=== PATIENT | female | born 1955 | race Caucasian/White ===

== ENCOUNTER 2021-06-27 15:04 | Emergency (ER) | payer OTHER ==
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
--- NOTE | 2021-06-27 15:54 | XRAY ---
Exam: CT of the head without IV contrast from 06/27/2021. CTDI: 53.92 mGy Comparison: [None.] Indication: 65-year-old female with right eye drooping, blurry vision, difficulty finding words. Findings: Noncontrast axial images are obtained through the brain. Reconstructed coronal and sagittal images were created and reviewed. [The ventricles are within normal limits of size.] No focal mass effect or midline shift is seen. No acute intracranial bleed or abnormal extra-axial fluid collection is seen. A low attenuation infarct within a major cerebral or cerebellar artery distribution is not seen. The cortical sulci and basilar cisterns appear unremarkable. The remainder of the paranasal sinuses is clear. The mastoid air cells appear clear. The calvarium of the skull appears intact. Impression: 1. No acute intracranial bleed, focal mass effect, or midline shift is seen. No other acute intracranial process is seen on this non-IV contrast study.
[2021-06-27 16:11] LABS: ALBUMIN 4.1 g/dL (3.5-5.0); ANION GAP 14.7 MEQ/L (5-15); BILIRUBIN,TOTAL 0.5 mg/dL (0.2-1.3); Calcium 9.3 mg/dL (8.4-10.2); Creatinine 1 1.15 mg/dL (0.52-1.04); EST GLOMERULAR FILTRATION RATE 50.5 ML/MIN; Potassium 3.7 mmol/L (3.5-5.1); Total Protein 7.1 g/dL (6.3-8.2)
[2021-06-27 16:12] LABS: Basophil (Absolute #) 0.07 (0-0.4); Eosinophil % 1.8 % (0.00-5.0); Eosinophil (Absolute #) 0.13 (0-0.5); Hematocrit 43.8 % (35-47); Hemoglobin 13.8 gm/dl (12.0-16.0); Lymphocyte (Absolute #) 1.53 (1.0-4.6); Lymphocytes % 20.6 % (24.0-44.0); Mean Cell Volume 91.3 fl (78-100); Mean Corpuscular Hemoglobin 28.8 pg (26-32); Mean Corpuscular Hgb Concent. 31.5 g/dl (32-36); Mean Platelet Volume 10.6 fl (7.5-11.0); Monocyte (Absolute #) 0.58 (0.0-1.3); Monocytes % 7.8 % (0.0-12.0); Neutrophil % 68.9 % (36.0-66.0); Platelet Count 250 K/mm3 (150-450); Red Cell Distribution Width 14.1 % (11.5-14.0); White Blood Count 7.4 K/mm3 (4.0-10.5)
[2021-06-27] MEDS ORDERED: HYDROCODONE-ACETAMIN 2.5-108/5 ML SOLUTION ONE (16:33)
[2021-06-27] MEDS: HYDROCODONE-ACETAMIN 2.5-108/5 ML SOLUTION PO STA (16:34)
--- NOTE | 2021-06-27 17:04 | XRAY ---
Exam: Bilateral duplex Doppler carotid ultrasound from 06/27/2021. Comparison: [None.] Indication: 65-year-old female with drooping of right eye; vertigo. Findings: On the right side, smooth plaque is seen throughout much of the common carotid artery and internal carotid artery without significant stenosis being seen. Mild calcific plaque is seen within the proximal external carotid artery. On the left side, irregular hyperechoic plaque is seen along both the anterior and posterior aspects of the distal common carotid artery, carotid bulb, proximal internal carotid artery, and proximal external carotid artery. A significant stenosis is not identified. Color flow and Doppler tracings were obtained bilaterally. Peak systolic flow velocities in cm/sec are as given below. PEAK SYSTOLIC FLOW VELOCITIES Proximal CCA RIGHT 109 cm/sec LEFT 108 cm/sec Distal CCA RIGHT 45 cm/sec LEFT 73 cm/sec Proximal ICA RIGHT 62 cm/sec LEFT 70 cm/sec Distal ICA RIGHT 65 cm/sec LEFT 63 cm/sec ECA RIGHT 53 cm/sec LEFT 95 cm/sec ICA/CCA Ratio RIGHT 1.4 LEFT 1.0 Vertebral RIGHT 45 cm/sec LEFT 85 cm/sec Direction Flow Both vertebral arteries reveal antegrade flow.. Impression: 1. No hemodynamically significant stenosis of 50% or greater diameter reduction is seen within either visualized common carotid artery or internal carotid artery. 2. Some atherosclerotic plaque is seen within both common carotid arteries and proximal internal carotid arteries, as discussed above.
[2021-06-27 17:22] VITALS: BP 145/69; PULSE 84
--- NOTE | 2021-06-27 17:26 | XRAY ---
Exam: AP upright portable chest film from 06/27/2021. Comparison: Two-view chest series from 02/21/2021. Indication: Cough for 6 weeks. Findings: The heart size is normal. The sh[place] and mediastinal structures appear unremarkable. The lungs are adequately inflated and reveal no infiltrates, vascular congestion, pneumothorax, or pleural fluid. Faint surgical suture material is again seen overlying the right lung apex. There is a single surgical clip overlying the lower right axilla representing no change. Several small surgical clips again overlie the left lower lung field. Evidently, the patient has a history of bilateral breast cancer with bilateral breast reconstruction and implants. I again see a mild compression deformity of T9 which appears grossly similar to the frontal chest film from 02/21/2021. Impression: 1. No definite infiltrates to suggest focal pneumonia or other acute cardiopulmonary disease is seen. 2. Other stable incidental findings, as discussed above.
[2021-06-27 17:31] LABS: Epithelial Cells RARE /HPF (FEW); RBC 0-2 /HPF (0-2)
[2021-06-27 17:34] LABS: INFLUENZA A NEGATIVE (NEGATIVE); INFLUENZA B NEGATIVE (NEGATIVE); RESPIRATORY SYNCTIAL VIRUS NEGATIVE (Negative)
[2021-06-27 17:36] LABS: SARS-CoV-2 Xpert Express POSITIVE (NEGATIVE)
[2021-06-27 17:42] VITALS: O2SAT 100
[2021-06-27 17:44] LABS: Appearance CLEAR (CLEAR); Bilirubin NEGATIVE (NEGATIVE); Dipstick done @ ? MAIN LAB; Glucose NEGATIVE (NEGATIVE); Ketones NEGATIVE (NEGATIVE); Nitrite NEGATIVE (NEGATIVE); Ph 5.5 (5-6); Protein,Urine Dip NEGATIVE (Negative); RBC SMALL Ery/ul (0-5); Specific Gravity 1.015 (1.005-1.025); Urobilinogen 0.2 mg/dL (0-1)
[2021-06-27 17:45] LABS: Urine Cultured Indicated? NO
== END 2021-06-27 18:18 | disposition home or self-care (01) ==
LOC: ED 15:04
DX: R51.9 Headache, unspecified (principal); H02.401 Unspecified ptosis of right eyelid; U07.1 COVID-19; R05.9 Cough, unspecified; I10 Essential (primary) hypertension; Z79.899 Other long term (current) drug therapy
CPT/HCPCS: 0241U; 36000; 36415; 70450; 71045; 80053; 81015; 82947; 84484; 85025; 93005; 93880; 94760; 99284; A9270-GY

== ENCOUNTER 2021-08-01 09:47 | Day surgery (SDC) | payer OTHER ==
[~2021-08-01 09:47] MED LIST: Lactated Ringers 1,000 ML IV SCH
[2021-08-01] MEDS ORDERED: Lactated Ringers 1,000 ML IV ONE (09:52)
[2021-08-01] MEDS ORDERED: Versed 2 MG/2 ML Injection ONE (11:13)
[2021-08-01] MEDS ORDERED: DIPRIVAN 200 MG/20 ML IV ONE (11:23)
[2021-08-01 12:42] VITALS: BP 157/80; PULSE 84; O2SAT 100
--- NOTE | 2021-08-03 08:48 | OP ---
PROCEDURE DATE/TIME: 08/01/2021 1113 PREOPERATIVE DIAGNOSES: Cough with possible gastroesophageal reflux disease. POSTOPERATIVE DIAGNOSIS: Gastroesophageal reflux disease with esophagitis, chronic cough, gastric polyp, gastritis, peptic ulcer disease and small hiatal hernia. PROCEDURES: 1) EGD with biopsy. 2) Cold snare gastric polyp x3. PROCEDURE PERFORMED BY: Shannon Degroot M.D. ESTIMATED BLOOD LOSS: Minimal. ANESTHESIA: MAC. SPECIMENS: Antral biopsies, distal esophagus biopsies, mid esophagus biopsies and gastric polyp. COMPLICATIONS: None. HISTORY: This is a patient who presented with a long standing cough and possible reflux disease as a culprit. I have been asked to perform an EGD to evaluate this due to her chronic symptoms and clinical course. Risks, benefits, alternatives, H&P and consent have all been reviewed and confirmed with the patient. Any remaining questions have been answered. These have all been documented in the chart. She would like to proceed with EGD today. DESCRIPTION OF PROCEDURE: The patient was positioned in the left lateral decubitus position. A complete time out performed. The scope introduced into the mouth, oropharynx down into the esophagus, stomach and the beginning of the duodenum. Advanced to the level of approximately D2. The duodenum is normal. The scope is withdrawn back into the stomach. The patient does have peptic ulcer disease. She has multiple moderate ulcers in the antral region as well as additional superficial ulcerations in the lower gastric body and gastritis throughout the stomach. The ulcerations are cratered slightly linear in shape not just round. There is a small amount of clot on ulceration. We irrigated and there was no visible vessel and no active bleeding. I did take biopsies in the gastric antrum and sent these to pathology. Of note, she also has many gastric polyps that appear benign. We cold snared the three largest and most irregular appearing polyps for sampling but I do think all of the remaining polyps are very smooth and benign appearing and looked like they are related to proton pump inhibitor use. The patient does have a small hiatal hernia which is very subtle which was identified on retroflexion. We insured hemostasis at all polypectomy sites and antral biopsies. There are no concerning masses. The scope was then withdrawn into the distal esophagus. She does appear to have gastroesophageal reflux disease which is present during the scope with free flow of small amounts of liquid into the mid esophagus region and suctioned immediately. She does have esophagitis of her distal esophagus as well as what appeared to be old food contents that are adherent to the esophagus, this does not appear to be Mireya esophagitis because the adherent spots on the esophagus do wash off and they are not white but I did biopsy her distal esophagus to rule out Hart's disease as well to test her pathology for any other further sources of esophagitis. We took biopsies in the mid esophagus as well where she did continue to have some adherent what appeared to be food product as well in the esophagus and washed off the surfaces as best we were able to. There were no masses or lesions of concern in the esophagus. There was no narrowing. The scope was then fully removed after insuring hemostasis. The patient tolerated the procedure very well. There were no immediate complications. I have discussed her results with her family in the postoperative area. She will follow up with me as an outpatient to discuss her pathology report and did give her additional medication as well as lifestyle and diet recommendations to decrease the reflux symptoms as well as to improve her gastritis and peptic ulcer disease and then we will tentatively plan to repeat an EGD in approximately three months to insure resolution of her significant ulcer disease as she had at least two moderate sized ulcers that were about 1.5 to 2 cm in length and less than 1 cm in width as well as other smaller sites of erosion and gastritis.
== END 2021-08-01 12:42 | disposition home or self-care (01) ==
LOC: SDC 09:47
PROVIDERS: ATTEND Surgery
DX: K21.00 Gastro-esophageal reflux disease with esophagitis, without bleeding (principal); K29.70 Gastritis, unspecified, without bleeding; R05.9 Cough, unspecified; R05.3 Chronic cough; K31.7 Polyp of stomach and duodenum; K30 Functional dyspepsia; K44.9 Diaphragmatic hernia without obstruction or gangrene
CPT/HCPCS: J2250; J2704

== ENCOUNTER 2021-08-10 14:42 | Day surgery (SDC) | payer OTHER ==
[2021-08-10] MEDS ORDERED: Depo-Medrol 40 MG/ML IM ONE (14:43)
[2021-08-10] MEDS ORDERED: LIDOCAINE HCL 2% 100 MG/5 ML IJ ONE (14:43)
[2021-08-10] MEDS ORDERED: Lactated Ringers 1,000 ML IV ONE (15:53)
[2021-08-10] MEDS ORDERED: DIPRIVAN 200 MG/20 ML IV ONE (16:23)
--- NOTE | 2021-08-10 18:13 | XRAY ---
Indication: Right T8-T11 MBB. Intraoperative fluoroscopy provided for 16 seconds. Single digital spot image submitted for interpretation demonstrates posterior needle tips projecting over the expected right T8-T11 nerve roots. Correlate with intraoperative findings/report.
--- NOTE | 2021-08-11 12:52 | XRAY ---
16 seconds of fluoroscopy was used in surgery for a right T8-T11 MBB.
== END 2021-08-10 17:05 | disposition home or self-care (01) ==
LOC: SDC-PAIN 14:42
PROVIDERS: ATTEND Psychiatry & Neurology Pain Medicine
DX: M47.814 Spondylosis without myelopathy or radiculopathy, thoracic region (principal); Z79.899 Other long term (current) drug therapy
CPT/HCPCS: 64490; 64491; 64492; 72020; 77002; J1030; J2704

== ENCOUNTER 2021-08-31 13:35 | Day surgery (SDC) | payer OTHER ==
[2021-08-31] MEDS ORDERED: Depo-Medrol 40 MG/ML IM ONE (13:36)
[2021-08-31] MEDS ORDERED: LIDOCAINE HCL 2% 100 MG/5 ML IJ ONE (13:36)
[2021-08-31] MEDS ORDERED: DIPRIVAN 200 MG/20 ML IV ONE (15:41)
[2021-08-31] MEDS ORDERED: Lactated Ringers 1,000 ML IV ONE (16:29)
--- NOTE | 2021-08-31 16:41 | XRAY ---
Indication: Left T8-T11 MBB. Intraoperative fluoroscopy provided for 15 seconds. Single digital spot image submitted for interpretation demonstrates posterior needle tips projecting over the expected left T8-T11 nerve roots. Correlate with intraoperative findings/report.
--- NOTE | 2021-08-31 17:13 | XRAY ---
15 seconds of fluoroscopy was used in surgery for a left T8-T11 MBB.
== END 2021-08-31 16:03 | disposition home or self-care (01) ==
LOC: SDC-PAIN 13:35
PROVIDERS: ATTEND Psychiatry & Neurology Pain Medicine
DX: M47.814 Spondylosis without myelopathy or radiculopathy, thoracic region (principal); Z79.899 Other long term (current) drug therapy
CPT/HCPCS: 01939; 64633; 64634; 72020; 77002; J1030; J2704

== ENCOUNTER 2021-09-28 11:57 | Day surgery (SDC) | payer OTHER, MEDICARE ==
[2021-09-28] MEDS ORDERED: Marcaine Mpf 0.5% Vial 30 Ml IJ ONE (11:58)
[2021-09-28] MEDS ORDERED: Depo-Medrol 40 MG/ML IM ONE (11:58)
[2021-09-28] MEDS ORDERED: Lactated Ringers 1,000 ML IV ONE (12:51)
[2021-09-28] MEDS ORDERED: DIPRIVAN 200 MG/20 ML IV ONE (13:26)
--- NOTE | 2021-09-28 14:07 | XRAY ---
Indication: Right T8-T11 MBB. Intraoperative fluoroscopy provided for 11 seconds. Single digital spot image submitted for interpretation demonstrates posterior needle tips projecting over the expected right T8-T11 nerve roots. Correlate with intraoperative findings/report.
--- NOTE | 2021-09-28 14:20 | XRAY ---
11 seconds of fluoroscopy was used in surgery for a right T8-T11 MBB.
== END 2021-09-28 14:00 | disposition home or self-care (01) ==
LOC: SDC-PAIN 11:57
PROVIDERS: ATTEND Psychiatry & Neurology Pain Medicine
DX: M47.814 Spondylosis without myelopathy or radiculopathy, thoracic region (principal); Z79.899 Other long term (current) drug therapy
CPT/HCPCS: 64490; 64491; 64492; 72072; 77002; J1030; J2704

== ENCOUNTER 2021-10-19 11:29 | Day surgery (SDC) | payer OTHER, MEDICARE ==
[2021-10-19] MEDS ORDERED: Depo-Medrol 40 MG/ML IM ONE (11:30)
[2021-10-19] MEDS ORDERED: BUPIVACAINE 0.5% VIAL IJ ONE (11:30)
[2021-10-19] MEDS ORDERED: Lactated Ringers 1,000 ML IV ONE (12:48)
[2021-10-19] MEDS ORDERED: DIPRIVAN 200 MG/20 ML IV ONE (13:03)
--- NOTE | 2021-10-19 13:32 | XRAY ---
Indication: Left T8-T11 MBB. Intraoperative fluoroscopy provided for 13 seconds. Single digital spot image submitted for interpretation demonstrate posterior needle tips projecting over the expected left T8-T11 nerve roots. Correlate with intraoperative findings/report.
--- NOTE | 2021-10-19 13:36 | XRAY ---
13 seconds fluoroscopy time in surgery for left T8-T11 MBB.
== END 2021-10-19 13:28 | disposition home or self-care (01) ==
LOC: SDC-PAIN 11:29
PROVIDERS: ATTEND Psychiatry & Neurology Pain Medicine
DX: M47.814 Spondylosis without myelopathy or radiculopathy, thoracic region (principal); Z79.899 Other long term (current) drug therapy
CPT/HCPCS: 64490; 64491; 64492; 72020; 77002; J1030; J2704

== ENCOUNTER 2021-11-23 13:11 | Day surgery (SDC) | payer MEDICARE, OTHER ==
[2021-11-23] MEDS ORDERED: XYLOCAINE-MPF 1% 5ML SDV IJ ONE (13:12)
[2021-11-23] MEDS ORDERED: Marcaine Mpf 0.5% Vial 30 Ml IJ ONE (13:12)
[2021-11-23] MEDS ORDERED: Depo-Medrol 40 MG/ML IM ONE (13:12)
[2021-11-23] MEDS ORDERED: DIPRIVAN 200 MG/20 ML IV ONE (15:22)
--- NOTE | 2021-11-23 16:52 | XRAY ---
Indication: Right T8-T11 RFA. Intraoperative fluoroscopy provided for 20 seconds. 2 digital spot image submitted for interpretation images demonstrates posterior needle tips projecting over the expected right T8-T11 nerve roots. Correlate with intraoperative findings/report.
--- NOTE | 2021-11-23 16:56 | XRAY ---
20 seconds of fluoroscopy was used in surgery for a right T8-T11 RFA.
[2021-11-23] MEDS ORDERED: Lactated Ringers 1,000 ML IV ONE (17:39)
== END 2021-11-23 15:50 | disposition home or self-care (01) ==
LOC: SDC-PAIN 13:11
PROVIDERS: ATTEND Psychiatry & Neurology Pain Medicine
DX: M47.816 Spondylosis without myelopathy or radiculopathy, lumbar region (principal); Z79.899 Other long term (current) drug therapy
CPT/HCPCS: 01939; 64633; 64634; 72072; 77002; J1030; J2704

== ENCOUNTER 2021-11-28 12:54 | Day surgery (SDC) | payer MEDICARE, OTHER ==
[2021-11-28] MEDS ORDERED: Lactated Ringers 1,000 ML IV SCH (13:30)
[2021-11-28] MEDS ORDERED: Lactated Ringers 1,000 ML IV ONE (13:37)
[2021-11-28] MEDS ORDERED: Xylocaine-Mpf 2% 5 Ml Vial ONE (15:52)
[2021-11-28] MEDS ORDERED: DIPRIVAN 200 MG/20 ML IV ONE (15:52)
[2021-11-28] MEDS ORDERED: Versed 2 MG/2 ML Injection ONE (15:53)
[2021-11-28 17:01] VITALS: BP 155/93; PULSE 84; O2SAT 97
--- NOTE | 2021-11-29 10:54 | OP ---
SURGERY DATE: 11/28/2021 SURGERY TIME: 1555 PREOPERATIVE DIAGNOSIS: 1. PEPTIC ULCER DISEASE. 2. GASTRITIS. 3. GASTRIC POLYPS. 4. ESOPHAGITIS. 5. EPIGASTRIC ABDOMINAL PAIN. 6. REFLUX. POSTOPERATIVE DIAGNOSIS: 1. MILD GASTRITIS. 2. RESOLVED PEPTIC ULCER DISEASE. 3. BENIGN-APPEARING GASTRIC POLYPS. 4. ESOPHAGITIS SUSPICIOUS FOR JACKELIN ESOPHAGITIS. 5. SMALL STABLE HIATAL HERNIA. PROCEDURE: 1. EGD with biopsies. SURGEON: Dr. Shannon Degroot. ANESTHESIA: MAC. ESTIMATED BLOOD LOSS: Minimal. COMPLICATIONS: None. SPECIMENS: 1. Antral biopsy. 2. Mid and distal esophagus biopsies. PROCEDURE DETAILS: This is a 66 year-old female who presents for EGD. She has had multiple findings previously including peptic ulcer disease, gastritis, gastric polyps, esophagitis and she also is having some epigastric pain and burning. Risks, benefits, and alternatives regarding EGD have been discussed with her in detail. She understands, agrees, she wants to proceed. She was taken to the endoscopy suite. Laid in the left lateral decubitus position. Complete time-out performed. First, the scope was inserted into the mouth, oropharynx, down into the esophagus, stomach, and duodenum. The duodenum was normal. We withdrew the scope to the stomach. The patient has resolved peptic ulcer disease. There are no remaining ulcers. She does have some mild gastritis throughout her stomach as well as multiple benign small gastric polyps. There are no concerning findings in her stomach and no masses of concern. She does look better than she did previously and this is a significant improvement. On retroflex view, her hiatal hernia is visible and this is stable. The scope was then carefully withdrawn after ensuring hemostasis from our cold forceps antral biopsy in the distal esophagus. We visualized the gastroesophageal junction. We again visualized the stable small hiatal hernia. The entire esophagus appears to have a jackelin like esophagitis. I took multiple biopsies in the esophagus including the mid and distal esophagus. These sites were hemostatic and then the scope was completely withdrawn. The patient tolerated the procedure well. There were no immediate complications. PLAN: Prescribe Nystatin swish and swallow. Okay to stop Carafate. Once the jackelin esophagitis has resolved, discussed with family that she may attempt to discontinue her Pepcid and continue on her proton pump inhibitor given her history of severe reflux. All findings and instructions discussed with the family postoperative and the patient also will be following up with me to determine a final plan once our biopsies are back.
== END 2021-11-28 17:07 | disposition home or self-care (01) ==
LOC: SDC 12:54
PROVIDERS: ATTEND Surgery
DX: K29.70 Gastritis, unspecified, without bleeding (principal); K27.9 Peptic ulcer, site unspecified, unspecified as acute or chronic, without hemorrhage or perforation; K31.7 Polyp of stomach and duodenum; K20.90 Esophagitis, unspecified without bleeding; R10.13 Epigastric pain; K21.9 Gastro-esophageal reflux disease without esophagitis; K44.9 Diaphragmatic hernia without obstruction or gangrene
CPT/HCPCS: J2250; J2704

== ENCOUNTER 2021-11-30 12:01 | Day surgery (SDC) | payer MEDICARE, OTHER ==
[2021-11-30] MEDS ORDERED: Depo-Medrol 40 MG/ML IM ONE (12:02)
[2021-11-30] MEDS ORDERED: LIDOCAINE HCL 1% 50 MG/5 ML VL PF IJ ONE (12:02)
[2021-11-30] MEDS ORDERED: BUPIVACAINE 0.5% VIAL IJ ONE (12:02)
[2021-11-30] MEDS ORDERED: DIPRIVAN 200 MG/20 ML IV ONE (13:35)
[2021-11-30] MEDS ORDERED: Lactated Ringers 1,000 ML IV ONE (14:35)
--- NOTE | 2021-11-30 15:17 | XRAY ---
Indication: Left T8-T11 RFA. Intraoperative fluoroscopy provided for 24 seconds. Single digital spot image submitted for interpretation demonstrates posterior needle tips projecting over the expected left T8-T11 nerve roots. Correlate with intraoperative findings/report.
--- NOTE | 2021-11-30 15:26 | XRAY ---
24 seconds of fluoroscopy was used in surgery for a left T8-T11 RFA.
== END 2021-11-30 14:20 | disposition home or self-care (01) ==
LOC: SDC-PAIN 12:01
PROVIDERS: ATTEND Psychiatry & Neurology Pain Medicine
DX: M47.816 Spondylosis without myelopathy or radiculopathy, lumbar region (principal); Z79.899 Other long term (current) drug therapy
CPT/HCPCS: 64633; 64634; 72072; 77002; J1030; J2001; J2704

== ENCOUNTER 2022-06-04 07:38 | Emergency (ER) | payer MEDICARE, OTHER ==
[2022-06-04] MEDS ORDERED: Nitrostat 0.4 MG (ED) SL ONE (07:57)
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
[2022-06-04] MEDS ORDERED: ECOTRIN 81 MG PO ONE (08:13)
[2022-06-04] MEDS ORDERED: BABY ASPIRIN 81 MG CHEW PO ONE (08:15)
[2022-06-04 08:32] LABS: Absolute Neutrophil Ct (ANC) 4.13 x10^3/uL (1.4-6.9); BASOPHIL % 1.1 % (0.0-0.4); Basophil (Absolute #) 0.07 x10^3/uL (0-0.4); Eosinophil % 1.7 % (0.00-5.0); Eosinophil (Absolute #) 0.11 x10^3/uL (0-0.5); Hematocrit 46.4 % (35-47); Hemoglobin 15.2 g/dL (12.0-16.0); IMMATURE GRAN # 0.01 x10^3u/L (0.00-0.03); IMMATURE GRAN % 0.2 % (0.00-0.4); Lymphocyte (Absolute #) 1.71 x10^3/uL (1.0-4.6); Lymphocytes % 26.9 % (24.0-44.0); Mean Cell Volume 85.6 fL (78-100); Mean Corpuscular Hgb Concent. 32.8 g/dL (32-36); Mean Platelet Volume 9.7 fL (7.5-11.0); Monocyte (Absolute #) 0.33 x10^3/uL (0.0-1.3); Monocytes % 5.2 % (0.0-12.0); Neutrophil % 64.9 % (36.0-66.0); Platelet Count 217 x10^3/uL (150-450); Red Blood Count 5.42 x10^6/uL (4.1-5.4); Red Cell Distribution Width 13.3 % (11.5-14.0); White Blood Count 6.4 x10^3/uL (4.0-10.5)
[2022-06-04 08:34] LABS: ALBUMIN 4.3 g/dL (3.5-5.0); ALKALINE PHOSPHATASE 64 U/L (38-126); BLOOD UREA NITROGEN 10 mg/dL (7-17); CHLORIDE 103 mmol/L (98-107); CK-Creatinine Phosphokinase 33 U/L (30-135); Carbon Dioxide 28 mmol/L (22-30); Creatinine 1 0.88 mg/dL (0.52-1.04); EST GLOMERULAR FILTRATION RATE > 60.0 ML/MIN; Glucose 109 mg/dL (74-106); Potassium 4.1 mmol/L (3.5-5.1); SGOT/AST 32 U/L (14-36); SGPT/ALT 18 U/L (0-35); SODIUM 142 mmol/L (137-145); Total Protein 7.4 g/dL (6.3-8.2)
[2022-06-04] MEDS ORDERED: Zofran 4 MG/2 ML VIAL IV ONE (08:48)
[2022-06-04] MEDS ORDERED: MORPHINE SULFATE 4 MG INJ IV ONE (08:48)
[2022-06-04] MEDS ORDERED: Zofran 4 MG/2 ML VIAL ONE (08:51)
[2022-06-04] MEDS ORDERED: MORPHINE SULFATE 4 MG INJ ONE (08:51)
--- NOTE | 2022-06-04 10:21 | XRAY ---
CLINICAL HISTORY:CP. COMPARISON:None; TECHNIQUES:Contiguous 3.[address] images of the chest were acquired with intravenous contrast administration (80 cc of Isovue 370 mgr/100 ml). Coronal and sagittal reconstructions were obtained. CTDI: 27 mGy, DLP: 339.90 mGy*cm; FINDINGS: The scanned pulmonary parenchyma shows no definite consolidative lesions. Atelectatic band formations at bilateral lower lobes, left lingular segment and right superior lung lobe regions are seen. No free or encysted pleural effusion. No evidence of aneurysmal dilation of the thoracic aorta. Breast implants are observed. Heart size is normal, and there is no pericardial effusion. Prominent left axillary lymph nodes, measuring largest measuring 1.75 x 1.0 cm. Clinical correlation and further evaluation are advised. No pathologically enlarged mediastinal, hilar, or right axillary lymph node was identified. There is no definite mass lesion in the chest wall. The scanned upper abdomen is unremarkable. Gallbladder is surgically removed. IMPRESSION: No pulmonary artery thrombus/ emboli are detected. No consolidation, pleural efusion or pneumothorax. No definite abnormality of the thoracic aorta is seen. Prominent left axillary lymph nodes, measuring largest measuring 1.75 x 1.0 cm. Clinical correlation and further evaluation are advised. Electronically Signed by: Britney Lovell MD. (Study Signed: 06/04/2022 09:06:48 [employer] RADIO TECHNICIAN)
[2022-06-04] MEDS ORDERED: NITRO-BID 2% UD PACKETS TOP ONE (10:40)
[2022-06-04] MEDS ORDERED: NITRO-BID 2% UD PACKETS ONE (10:50)
[2022-06-04 12:32] VITALS: BP 140/84; PULSE 104; O2SAT 98
--- NOTE | 2022-06-04 19:33 | XRAY ---
Indication: Chest pain. Comparison: June 27, 2021 Portable chest remains inflated and clear. Heart not enlarged. Bony thorax intact again with osteopenia. New bilateral breast implants. Impression: Continued nonacute chest.
== END 2022-06-04 12:10 | disposition short-term general hospital (02) ==
LOC: ED 07:38
DX: I20.0 Unstable angina (principal); I10 Essential (primary) hypertension; Z79.899 Other long term (current) drug therapy
CPT/HCPCS: 36000; 36415; 71045; 71260; 80053; 82550; 84484; 85025; 85379; 93005; 93041; 96374; 96375; 99285; J2270; J2405; A9270-GY

== ENCOUNTER 2022-07-19 14:39 | Day surgery (SDC) | payer MEDICARE, OTHER ==
[2022-07-19] MEDS ORDERED: Decadron 4 MG INJ IV ONE (14:40)
[2022-07-19] MEDS ORDERED: Sodium Chloride 0.9(Preservative Free) 10 ML IJ ONE (14:40)
[2022-07-19] MEDS ORDERED: LIDOCAINE HCL 1% 50 MG/5 ML VL PF IJ ONE (14:40)
[2022-07-19] MEDS ORDERED: Lactated Ringers 1,000 ML IV ONE (18:10)
--- NOTE | 2022-07-19 22:06 | XRAY ---
Indication: Cervical FELISHA. Intraoperative fluoroscopy provided for 33 seconds. 2 digital spot image submitted for interpretation demonstrates posterior needle tip projecting posterior to cervical thoracic junction. Small amount of contrast injected for needle tip placement. Correlate with intraoperative findings/report.
--- NOTE | 2022-07-20 10:21 | XRAY ---
33 seconds of fluoroscopy was used in surgery for a cervical FELISHA.
== END 2022-07-19 17:48 | disposition home or self-care (01) ==
LOC: SDC-PAIN 14:39
PROVIDERS: ATTEND Psychiatry & Neurology Pain Medicine
DX: M54.12 Radiculopathy, cervical region (principal); Z79.899 Other long term (current) drug therapy
CPT/HCPCS: 62321; 72040; 77003; J1100; J2001; Q9966

== ENCOUNTER 2023-01-24 12:17 | Day surgery (SDC) | payer MEDICARE, OTHER ==
[2023-01-24] MEDS ORDERED: Depo-Medrol 40 MG/ML IM ONE (12:18)
[2023-01-24] MEDS ORDERED: BUPIVACAINE 0.5% VIAL IJ ONE (12:18)
[2023-01-24] MEDS ORDERED: XYLOCAINE-MPF 1% 5ML SDV IJ ONE (12:18)
--- NOTE | 2023-01-24 17:00 | XRAY ---
Indication: Left shoulder and subacromial bursa injection. Intraoperative fluoroscopy provided for 29 seconds. 3 digital spot image submitted for interpretation demonstrates needle tip projecting over left glenohumeral joint superiorly. Second needle tip subacromial. Small amount of contrast injected for both needle tip placement. Correlate with intraoperative findings/report.
--- NOTE | 2023-01-24 17:02 | XRAY ---
29 seconds of fluoroscopy was used in surgery for a left intra-articular shoulder and subacromial bursa injection.
== END 2023-01-24 15:37 | disposition home or self-care (01) ==
LOC: SDC-PAIN 12:17
PROVIDERS: ATTEND Psychiatry & Neurology Pain Medicine
DX: M19.012 Primary osteoarthritis, left shoulder (principal); M75.52 Bursitis of left shoulder; Z79.899 Other long term (current) drug therapy
CPT/HCPCS: 20610; 73030; 77002; J1030; Q9966

== ENCOUNTER 2023-08-29 06:57 | Day surgery (SDC) | payer MEDICARE, OTHER ==
--- NOTE | 2023-08-29 10:14 | XRAY ---
Indication: Left shoulder and subacromial bursa injection. Intraoperative fluoroscopy provided for 18 seconds. 2 digital spot image submitted for interpretation demonstrates needle tip projecting over left glenohumeral joint superiorly. Second needle tip subacromial. Small amount of contrast injected for needle tip placement. Correlate with intraoperative findings/report.
--- NOTE | 2023-08-29 11:41 | XRAY ---
18 seconds of fluoroscopy was used in surgery for a left intra-articular shoulder and subacromial bursa injection.
== END 2023-08-29 08:55 | disposition home or self-care (01) ==
LOC: SDC-PAIN 06:57
PROVIDERS: ATTEND Psychiatry & Neurology Pain Medicine
DX: M19.012 Primary osteoarthritis, left shoulder (principal)
CPT/HCPCS: 20610; 73030; 77002; Q9966

== ENCOUNTER 2024-09-17 09:45 | Day surgery (SDC) | payer MEDICARE, OTHER ==
[2024-09-17] MEDS ORDERED: Marcaine Mpf 0.5% Vial 30 Ml IJ ONE (09:46)
[2024-09-17] MEDS ORDERED: Depo-Medrol 40 MG/ML IM ONE (09:46)
[2024-09-17] MEDS ORDERED: propofoL IV ONE (11:45)
[2024-09-17] MEDS ORDERED: Lactated Ringers 1,000 ML IV ONE (12:24)
--- NOTE | 2024-09-17 13:24 | XRAY ---
Indication: Bilateral T8-T10 MBB. Intraoperative fluoroscopy provided for 12 seconds. 2 digital spot images submitted for interpretation demonstrates posterior needle tips projecting over expected left and right T8-T10 nerve roots. Correlate with intraoperative findings/report.
--- NOTE | 2024-09-17 15:24 | XRAY ---
12 seconds of fluoroscopy was used in surgery for a bilateral T8-T10 MBB.
== END 2024-09-17 12:12 | disposition home or self-care (01) ==
LOC: SDC-PAIN 09:45
PROVIDERS: ATTEND Psychiatry & Neurology Pain Medicine
DX: M47.814 Spondylosis without myelopathy or radiculopathy, thoracic region (principal)

== ENCOUNTER 2024-10-29 15:14 | Day surgery (SDC) | payer MEDICARE, OTHER ==
[2024-10-29] MEDS ORDERED: LIDOCAINE HCL 1% 50 MG/5 ML VL IJ ONE (15:15)
[2024-10-29] MEDS ORDERED: BUPIVACAINE 0.5% VIAL IJ ONE (15:15)
[2024-10-29] MEDS ORDERED: methylPREDNISolone acetate IM ONE (15:15)
[2024-10-29] MEDS ORDERED: propofoL IV ONE (16:15)
[2024-10-29] MEDS ORDERED: MORPHINE SULFATE 2 MG INJ ONE (16:55)
--- NOTE | 2024-10-29 17:02 | XRAY ---
Indication: Right T8-T10 RFA. Intraoperative fluoroscopy provided for 20 seconds. 2 digital spot image submitted for interpretation demonstrates posterior needle tips projecting over expected right T8-T10 nerve roots. Correlate with intraoperative findings/report.
--- NOTE | 2024-10-29 17:09 | XRAY ---
20 seconds of fluoroscopy was used in surgery for a right T8-T10 RFA.
[2024-10-29] MEDS ORDERED: Lactated Ringers 1,000 ML IV ONE (17:21)
== END 2024-10-29 17:18 | disposition home or self-care (01) ==
LOC: SDC-PAIN 15:14
PROVIDERS: ATTEND Psychiatry & Neurology Pain Medicine
DX: M47.814 Spondylosis without myelopathy or radiculopathy, thoracic region (principal)

== ENCOUNTER 2024-11-12 06:54 | Day surgery (SDC) | payer MEDICARE, OTHER ==
[2024-11-12] MEDS ORDERED: BUPIVACAINE 0.5% VIAL IJ ONE (06:55)
[2024-11-12] MEDS ORDERED: methylPREDNISolone acetate IM ONE (06:55)
[2024-11-12] MEDS ORDERED: LIDOCAINE HCL 1% 50 MG/5 ML VL IJ ONE (06:55)
[2024-11-12] MEDS ORDERED: propofoL IV ONE (08:07)
[2024-11-12] MEDS ORDERED: Lactated Ringers 1,000 ML IV ONE (09:03)
--- NOTE | 2024-11-12 11:53 | XRAY ---
Indication: Left T8-T10 RFA. Intraoperative fluoroscopy provided for 15 seconds. 2 digital spot image submitted for interpretation demonstrates posterior needle tips projecting over expected left T8-T10 nerve roots. Correlate with intraoperative findings/report.
--- NOTE | 2024-11-12 12:56 | XRAY ---
15 seconds of fluoroscopy was used in surgery for a left T8-T10 RFA.
== END 2024-11-12 08:46 | disposition home or self-care (01) ==
LOC: SDC-PAIN 06:54
PROVIDERS: ATTEND Psychiatry & Neurology Pain Medicine
DX: M47.814 Spondylosis without myelopathy or radiculopathy, thoracic region (principal)